=== PATIENT | female | born 1990 | race Caucasian/White ===

== ENCOUNTER 2017-10-01 12:35 | Outpatient (CLI) | payer OTHER ==
[2017-10-01] MEDS ORDERED: IOTHALAMATE MEGLUMINE 50 ML VIAL ONE (13:03)
[2017-10-01] MEDS ORDERED: LIDOCAINE 1% 10 ML MDV ONE (13:03)
[2017-10-01] MEDS ORDERED: GADOPENTETATE DIMEGLUMINE 5 ML VIAL IVP ONE ×2 (13:18→13:43)
[2017-10-01] MEDS ORDERED: BUFFERED LIDOCAINE 10 ML SYRINGE IU ONE (13:43)
[2017-10-01] MEDS ORDERED: LIDOCAINE 1% 10 ML MDV SUBQ ONE (13:43)
[2017-10-01] MEDS ORDERED: IOTHALAMATE MEGLUMINE 50 ML VIAL IVP ONE ×2 (13:43)
--- NOTE | 2017-10-01 17:05 | MRI Report ---
EXAM: LEFT HIP MRI ARTHROGRAM WITH CONTRAST EXAM DATE: 10/01/2017 02:18 PM. CLINICAL HISTORY: Left hip pain. COMPARISON: None. TECHNIQUE: Multiplanar, multisequence T1-weighted and fluid-sensitive, small rbhcg-fh-[id number] sequences of the hip and large kfjsx-tf-ibrr sequences of the pelvis after an arthrographic injection of dilute gadolinium, dictated under a separate exam. Other: None. FINDINGS: Bones: No fractures or subluxations. No marrow edema or bone lesions. Left Hip: No acetabular retroversion. Femoral head/neck offset is within normal limits. No loose bodi es. The articular cartilage is intact. The labrum is intact. The ligamentum teres is intact. Other Joints: The visualized lumbar spine, sacroiliac joints, symphysis pubis, and contralateral hip are unremarkable. Musculature: No edema or fatty atrophy. The gluteus medius and minimus tendons are normal. The visual ized hamstring tendons are normal. The ischiofemoral space is normal. Pelvic Cavity: Small amount of free fluid at the pelvis. Incidentally, there is a 2.6 x 1.9 x 2.4 cm simple-appearing cyst at the left ovary. No lymphadenopathy. Other: The visualized sciatic nerves are unremarkable. No bursitis. The subcutaneous tissues are unre markable. IMPRESSION: 1. Unremarkable MR arthrogram of the left hip. No evidence of left acetabular labral tear. 2. Incidental finding of a small left ovarian cyst. Small amount of free fluid in the pelvis. [facility] MUSCULOSKELETAL RADIOLOGY SECTION Referring Provider Line: [phone] SITE ID: [id number]
--- NOTE | 2017-10-01 18:13 | XRAY Report ---
FLUOROSCOPICALLY-GUIDED LEFT HIP INJECTION FOR MR ARTHROGRAM: 10/01/2017 CLINICAL INDICATION: Chronic pain, possible history of labral tear. Following obtaining informed consent, the patient's left hip was prepped and draped in the usual ster ile fashion. The skin and soft tissues were anesthetized with lidocaine. A spinal needle was insert ed into the left hip joint, and following confirmation of needle positioning, a combination of iodin ated contrast, dilute gadolinium, and lidocaine was injected intraarticularly. The patient tolerated the procedure well. No immediate complications. IMPRESSION: SUCCESSFUL LEFT HIP INJECTION FOR MR ARTHROGRAM. FLUOROSCOPY TIME: 34 seconds; one spot image obtained. JOB #: [id number] EXT JOB #:[id number]
== END 2017-10-01 12:36 | disposition home or self-care (01) ==
LOC: DI 12:35
PROVIDERS: ATTEND Student in an Organized Health Care Education/Training Program
DX: M25.552 Pain in left hip (principal)
CPT/HCPCS: 20610; 73722; 77002; Q9961